=== PATIENT | female | born 1965 | race African-American/Black ===

== ENCOUNTER 2017-03-30 15:00 | Outpatient (CLI) | payer BC ==
[2017-03-30 16:09] LABS: #Basophils 0.1 thou/uL (0.0-0.2); #Eosinphils 0.1 thou/uL (0.0-0.7); #Monocytes 0.3 thou/uL (0.11-0.59); #Neutrophils 1.8 thou/uL (1.40-6.50); %Basophils 2.3 % (0.0-1.0); %Eosinophils 2.2 % (0.0-10.0); %Lymphocytes 46.3 % (21.0-51.0); %Monocytes 7.7 % (0.0-10.0); Hematocrit 40.5 % (36.0-47.0); Mean Platelet Volume 6.2 fL (7.4-10.4); Red Blood Cell (RBC) Count 4.68 mill/uL (4.20-5.40); White Blood Cell (WBC) Count 4.2 thou/uL (4.8-10.8)
[2017-03-30 16:34] LABS: ALT (SGPT) 11 U/L (8-55); AST (SGOT) 18 U/L (5-34); Alkaline Phosphatase 68 U/L (40-150); Anion Gap 9 mmol/L (10-20); BUN (Urea Nitrogen) 14 mg/dL (9.8-20.1); Bilirubin, Total 0.3 mg/dL (0.2-1.2); Calc. Creatinine Clearance 0 mL/min (70-130); Calcium 9.7 mg/dL (7.8-10.44); Carbon Dioxide 30 mmol/L (22-29); Chloride 107 mmol/L (98-107); Estimated GFR-MDRD 89; Globulin 3.3 g/dL (2.4-3.5); Protein, Total 7.7 g/dL (6.0-8.3)
== END 2017-03-30 15:01 | disposition home or self-care (01) ==
LOC: LABBT 15:00
PROVIDERS: ATTEND Surgery
DX: Z01.818 Encounter for other preprocedural examination (principal); K43.2 Incisional hernia without obstruction or gangrene
CPT/HCPCS: 80053; 85025; 93005; 93010

== ENCOUNTER 2017-04-03 08:41 | Inpatient (IN) | payer BC ==
[2017-03-30 15:30] VITALS: BMI 25.5
[2017-04-03] MEDS ORDERED: CEFAZOLIN/Water 2 GM/20 ML SYRINGE ONE (10:15)
[2017-04-03] MEDS ORDERED: Bupivacaine/Epinephrine 0.25% 30 ML VIAL ONE (11:25)
[2017-04-03] MEDS ORDERED: Fentanyl 250 MCG/5 ML VIAL ONE (11:29)
[2017-04-03] MEDS ORDERED: Midazolam HCl 2 mg/2 ml Vial ONE (11:29)
[2017-04-03] MEDS ORDERED: Fentanyl 100 MCG/2 ML VIAL ONE ×2 (11:29→13:54)
[2017-04-03] MEDS ORDERED: diphenhydrAMINE 25 MG CAP PO PRN (12:08)
[2017-04-03] MEDS ORDERED: Ondansetron HCl/PF 4 MG/2 ML Vial IVP PRN (12:08)
[2017-04-03] MEDS ORDERED: Promethazine HCl 25 MG/ML VIAL SLOW IVP PRN (12:08)
[2017-04-03] MEDS ORDERED: Fentanyl 5000 MCG/250 ML CADD IVPB PRN (12:08)
[2017-04-03] MEDS ORDERED: diphenhydrAMINE 50 MG/ML VIAL IVP PRN (12:08)
[2017-04-03] MEDS ORDERED: diphenhydrAMINE 50 MG/ML VIAL IM PRN (12:08)
[2017-04-03] MEDS ORDERED: Meperidine HCl/PF 25 MG/ML VIAL SLOW IVP PRN (12:08)
[2017-04-03] MEDS ORDERED: Naloxone HCl 0.4 mg/ml Vial IV PRN (12:08)
[2017-04-03] MEDS ORDERED: Promethazine HCl 25 MG/ML VIAL IM PRN ×2 (12:08→13:19)
[2017-04-03] MEDS ORDERED: Ketorolac Tromethamine 30 MG/ML VIAL IVP PRN (12:08)
[2017-04-03] MEDS ORDERED: Zolpidem Tartrate 5 MG TAB PO PRN (12:08)
[2017-04-03] MEDS ORDERED: HYDROmorphone 2 MG/ML VIAL SLOW IVP PRN (12:08)
[2017-04-03] MEDS ORDERED: Morphine Sulfate 2 MG/ML SYRINGE SLOW IVP PRN (12:08)
[2017-04-03] MEDS ORDERED: Communication Order-Pharmacy FS SCH (12:15)
[2017-04-03] MEDS ORDERED: hydrALAZINE 20 MG/ML VIAL SLOW IVP PRN (13:19)
[2017-04-03] MEDS ORDERED: Mag-Al 1200 mg/1200 mg/30 ML UDCUP PO PRN (13:19)
[2017-04-03] MEDS ORDERED: Dextrose 50% Abboject 50 ML SYRINGE SLOW IVP PRN (13:19)
[2017-04-03] MEDS ORDERED: Dextrose 5% in Water 1,000 ML IV PRN (13:19)
[2017-04-03] MEDS ORDERED: Calcium Carbonate 500 MG ChewTAB PO PRN (13:19)
--- NOTE | 2017-04-03 13:33 | OP ---
SURGEON: Dipak Madrid M.D. PROCEDURE PERFORMED: Laparoscopic recurrent ventral hernia repair with mesh. SURGEON: Dipak Madrid M.D. INDICATIONS: This is a 51-year-old female who has had a previous ventral hernia repair with mesh, wh o developed recurrence. FINDINGS: About 5 cm defect which was closed with 0 V-Loc and then a 10 x 15 cm mesh placed. PROCEDURE IN DETAIL: After informed consent was obtained, the patient was taken to the operating dayo m and given general endotracheal anesthesia, placed in the supine position. Abdomen was prepped and draped in the usual fashion. Local anesthesia infiltrated subcutaneously and deep. A 12 mm incision was performed in right flank. Veress needle inserted. Drop test performed. Pneumoperitoneum was c reated to a volume of 2 liters of carbon dioxide. Utilizing a bladeless 12 mm trocar and 0 degree la paroscope direct visual entry in the abdominal cavity was performed. Pneumoperitoneum was created to a pressure of 15 mmHg. There were quite a bit of adhesions. A 5 mm port was placed in the right up per quadrant and a laparoscopic lysis of adhesions performed utilizing the LigaSure. Once the anteri or abdominal wall was cleaned up, another 5 mm port was placed in the right lower quadrant. The defe ct was closed with a running 0 V-Loc transversely from left to right. Once the defect was closed, a 10 x 15 cm Proceed mesh was hydrated and stay sutures were placed with 0 Ethibond suture. This was r olled and inserted intraabdominally then unrolled and the sutures were grasped with the GraNee needle transcutaneously and brought up, they were tied to position the mesh optimally. Then the mesh was f urther secured with SecureStrap Tacker circumferentially. Hemostasis was assured. The repair was al so done with the pressure decreased to 10 cm of water pressure. The skin closed with interrupted 4-0 Rapide. Dermabond applied. The patient tolerated the procedure well and transferred to recovery in good condition. Sponge and needle count verified correct x2.
[2017-04-03] MEDS ORDERED: Fentanyl 20 MCG/ML 250 ML ONE (13:45)
[2017-04-03] MEDS ORDERED: Promethazine HCl 25 MG/ML VIAL ONE (13:57)
[2017-04-03] MEDS ORDERED: Ketorolac Tromethamine 30 MG/ML VIAL ONE (16:07)
[2017-04-03] MEDS ORDERED: Ondansetron HCl/PF 4 MG/2 ML Vial ONE (16:07)
[2017-04-03] MEDS ORDERED: Lidocaine 1% PF 5 ML VIAL ONE (16:07)
[2017-04-03] MEDS ORDERED: Dexamethasone 20 MG/5 ML VIAL ONE (16:07)
[2017-04-03] MEDS ORDERED: Propofol 200 MG/20 ML VIAL ONE (16:07)
[2017-04-03] MEDS ORDERED: Glycopyrrolate 0.2 MG/ML 5 ML SYRINGE ONE (16:07)
[2017-04-03] MEDS: D5 1/2 NS w/20 mEq KCL 1,000 ML IV SCH (16:23)
[2017-04-03] MEDS: Docusate 100 MG CAP PO SCH (21:53)
[2017-04-03] MEDS: Famotidine 20 MG TAB PO SCH (21:53)
[2017-04-03] MEDS: Famotidine/PF 20 mg/2ml Vial SLOW IVP SCH (21:55)
[2017-04-04] MEDS: D5 1/2 NS w/20 mEq KCL 1,000 ML IV SCH ×2 (00:59→09:26)
[2017-04-04] MEDS: Ondansetron HCl/PF 4 MG/2 ML Vial IVP PRN ×3 (00:59→11:50)
[2017-04-04 05:34] LABS: #Lymphocytes 1.3 thou/uL (1.20-3.40); #Monocytes 0.6 thou/uL (0.11-0.59); %Basophils 0.6 % (0.0-1.0); %Eosinophils 0.3 % (0.0-10.0); %Lymphocytes 16.6 % (21.0-51.0); %Monocytes 7.2 % (0.0-10.0); Hematocrit 36.1 % (36.0-47.0); Mean Platelet Volume 6.2 fL (7.4-10.4); Red Blood Cell (RBC) Count 4.21 mill/uL (4.20-5.40)
[2017-04-04] MEDS: Famotidine/PF 20 mg/2ml Vial SLOW IVP SCH (07:49)
[2017-04-04] MEDS: Docusate 100 MG CAP PO SCH (07:49)
[2017-04-04] MEDS ORDERED: Enoxaparin Sodium 40 MG/0.4 ML SYRINGE SC SCH (09:00)
[2017-04-04] MEDS: Famotidine 20 MG TAB PO SCH (09:26)
[2017-04-04] MEDS ORDERED: Ketorolac Tromethamine 30 MG/ML VIAL IVP PRN (11:18)
[2017-04-04] MEDS ORDERED: HYDROcodone/Acetaminophen 10/325 mg Tablet PO PRN (11:18)
[2017-04-04] MEDS ORDERED: Fentanyl 100 MCG/2 ML VIAL SLOW IVP PRN (11:18)
[2017-04-04 11:51] VITALS: BP 115/68; TEMP 98.3
[2017-04-04] MEDS: HYDROcodone/Acetaminophen 10/325 mg Tablet PO PRN ×2 (11:56→14:44)
--- NOTE | 2017-04-04 13:53 | DIS ---
DISCHARGE DIAGNOSIS: Recurrent incisional ventral hernia. PROCEDURES PERFORMED: Laparoscopic ventral hernia repair with mesh. HOSPITAL COURSE: The patient was admitted, taken to the operating room where she underwent a laparos copic fascial closure and reinforcement with mesh. Postoperatively, she has done well. Pain is cont rolled on p.o. medications. She is discharged home tolerating a regular diet. DISCHARGE MEDICATIONS: Include [place]. She will follow up with me in 2 weeks.
== END 2017-04-04 14:45 | disposition home or self-care (01) | DRG 355 ==
LOC: SDC 08:41 → 3SE 15:52
PROVIDERS: ADMIT Surgery; ATTEND Surgery
PROC: 0WUF4JZ Supplement Abdominal Wall with Synthetic Substitute, Percutaneous Endoscopic Approach (ICD-10-PCS; principal; 2017-04-04)
PROC: 8E0W4CZ Robotic Assisted Procedure of Trunk Region, Percutaneous Endoscopic Approach (ICD-10-PCS; 2017-04-04)
DX: K43.2 Incisional hernia without obstruction or gangrene (principal)
CPT/HCPCS: 36415; 85025; A4216; J0131; J1100; J1885; J2001; J2250; J2405; J2550; J2704; J3010; S0028